=== PATIENT | female | born 1990 | race Caucasian/White ===

== ENCOUNTER 2016-08-31 03:09 | Emergency (ER) | payer BC ==
[~2016-08-31] VITALS: Ht 165.1 cm; Wt 68.0 kg
[2016-08-31 03:23] VITALS: BP 122/82
--- NOTE | 2016-08-31 03:23 | Emergency Room Report ---
History of Present Illness General Chief Complaint: Overdose Source: Patient Present Illness HPI Is a 2 to 5-year-old female with a history of drug abuse. She is currently in a sober living. She's been sober for over 5 months. She said she missed up and start using heroine today. She overdose and was unresponsive. 911 was called. She was given Narcan with good response. Denies suicidal thought homicidal thought. Denies any benzodiazepine or any other long-acting opiates. Now she is vomiting. Allergies: Coded Allergies: No Known Allergies (Unverified , 08/31/16) Patient History Past Medical History: see triage record, old chart reviewed Past Surgical History: none Pertinent Family History: none Last Menstrual Period: UNK Now: No Immunizations: other Reviewed Nursing Documentation: PMH: Agreed, PSxH: Agreed Review of Systems Eye: Denies: blurred vision, eye pain ENT: Denies: ear pain, nose congestion, throat swelling Respiratory: Denies: cough, shortness of breath Cardiovascular: Denies: chest pain, palpitations Gastrointestinal: Denies: abdominal pain, diarrhea, nausea, vomiting Musculoskeletal: Denies: back pain, joint pain Skin: Denies: rash Neurological: Denies: headache, numbness Endocrine: Denies: increased thirst, increased urine Hematologic/Lymphatic: Denies: easy bruising All Other Systems: negative except mentioned in HPI Physical Exam Vital Signs Date Time Temp Pulse Resp B/P Pulse Ox O2 Delivery O2 Flow Rate FiO2 08/31/16 03:01 97.3 100 16 126/86 100 Room Air vitals normal Sp02 EP Interpretation: reviewed, normal General Appearance: well appearing, no apparent distress, alert Head: normocephalic, atraumatic Eyes: bilateral eye EOMI, bilateral eye PERRL ENT: hearing grossly normal, normal pharynx Neck: full range of motion, supple, no meningismus Respiratory: chest non-tender, lungs clear, normal breath sounds Cardiovascular #1: regular rate, rhythm, no murmur Gastrointestinal: normal bowel sounds, non tender, no mass, no organomegaly, no bruit, non-distended Musculoskeletal: back normal, gait/station normal, normal range of motion Psychiatric: mood/affect normal Skin: warm/dry Medical Decision Making Diagnostic Impression: Primary Impression: Accidental heroin overdose Qualified Codes: T40.1X1A - Poisoning by heroin, accidental (unintentional), initial encounter ER Course Patient with accidental heroin overdose. She's not suicidal homicidal. We'll monitor her to she's more stable. Afterward discharge. No criteria for 5150. Last Vital Signs Date Time Temp Pulse Resp B/P Pulse Ox O2 Delivery O2 Flow Rate FiO2 08/31/16 03:01 97.3 100 16 126/86 100 Room Air Status: improved Disposition: HOME, SELF-CARE Condition: Stable Patient Instructions: OVERDOSE, Accidental (Adult) Additional Instructions: Followup with rehabilitation within a week. Abstain from drugs and alcohol. Return if symptom worsen. JERARDO BISHOP M.D. August 31, 2016 03:23
[2016-08-31] MEDS ORDERED: CATAPRES0.1 MG ORAL (03:28)
[2016-08-31] MEDS ORDERED: SEROQUEL XR400 MG ORAL (03:28)
[2016-08-31] MEDS ORDERED: ZOFRAN ODT4 MG SL (03:28)
[2016-08-31] MEDS ORDERED: LITHIUM CARBON300 MG ORAL (03:28)
[2016-08-31] MEDS ORDERED: QUETIAPINE FUMA50 MG ORAL (03:28)
[2016-08-31 04:56] VITALS: BP 108/75
[2016-08-31 05:51] VITALS: BP 108/75
== END 2016-08-31 05:52 | disposition home or self-care (01) ==
LOC: EDBD 03:09 → EMR 03:23
DX: T40.1X1A Poisoning by heroin, accidental (unintentional), initial encounter (principal); Y92.89 Other specified places as the place of occurrence of the external cause
CPT/HCPCS: 96374; 96375; 99284; J2405